=== PATIENT | female | born 1955 | race Caucasian/White ===

== ENCOUNTER → 2017-02-23 | Outpatient (CLI) | payer BC ==
[~2017-02-23] MED LIST: ASPI-650 PO; ASPIRIN; BENZTROPINE MESYLATE; CALCITRIOL; DICLOFENAC; PANT40TA3 PO; PRO AIR; SEROQUEL XR; SYMBICORT; VIT
--- NOTE | 2017-02-23 15:52 | RADRPT ---
PROCEDURE: Nuclear medicine parathyroid scan. CLINICAL INDICATION: Hyperparathyroidism. TECHNIQUE: 20 mCi technetium 99m sestamibi was administered intravenously. Anterior and obliqu e images of the neck were obtained at 5 minutes and 3 hours. COMPARISON: No prior study is available for comparison. FINDINGS: There is normal thyroid and salivary gland uptake. There is no uptake to suggest parathyroid adenom a. IMPRESSION: 1. No evidence of parathyroid adenoma. RPTAT: QQ .Cody Gray MD, MD Date Time Electronically viewed and signed by .Cody Gray MD, MD on 02/23/2017 15:52 .R/
== END | disposition home or self-care (01) ==
LOC: NUC 09:26
PROVIDERS: ATTEND Surgery Surgical Oncology
DX: E04.1 Nontoxic single thyroid nodule (principal)
CPT/HCPCS: 78070; A9500

== ENCOUNTER 2018-08-05 06:46 | Day surgery (SDC) | END 2018-08-05 12:56 | disposition home or self-care (01) ==